=== PATIENT | male | born 2000 | race Caucasian/White ===

== ENCOUNTER 2023-04-08 17:38 | Emergency (ER) | payer MEDICAID ==
[~2023-04-08] VITALS: Ht 170.2 cm; Wt 86.4 kg
[2023-04-08 17:40] VITALS: TEMP 97.9
[2023-04-08] MEDS ORDERED: KETOROLAC TROMETHAMINE 30 MG/ML VIAL IVP ONE (18:15)
[2023-04-08] MEDS ORDERED: ACETAMINOPHEN 500 MG TABLET PO ONE (18:15)
[2023-04-08] MEDS ORDERED: ONDANSETRON HCL 4 MG/2 ML VIAL IVP ONE (18:15)
[2023-04-08] MEDS ORDERED: SODIUM CHLORIDE 0.9% 2,000 ML IV ONE (18:15)
[2023-04-08 18:45] LABS: BASOPHILS % (AUTO) 0.7 % (0.0-2.0); EOSINOPHILS % (AUTO) 0.4 % (1.0-6.0); HEMATOCRIT 44.5 % (41-53); LYMPHOCYTES # (AUTO) 1.4 K/uL (1.0-4.8); LYMPHOCYTES % (AUTO) 12.7 % (22.0-44.0); MEAN CORPUSCULAR HEMOGLOBIN 29.7 pg (26.0-34.0); MEAN CORPUSCULAR HGB CONC 33.8 G/dL (31.0-37.0); MEAN CORPUSCULAR VOLUME 88 fL (80-100); MONOCYTES # (AUTO) 0.8 K/uL (0.1-1.0); MONOCYTES % (AUTO) 7.6 % (2.0-9.0); NEUTROPHILS # (AUTO) 8.5 K/uL (1.8-7.7); NEUTROPHILS % (AUTO) 78.6 % (40.0-70.0); PLATELET COUNT (AUTO) 223 K/uL (150-450); RED BLOOD CELL COUNT(AUTO) 5.06 MIL/uL (4.50-5.90); WHITE BLOOD COUNT (AUTO) 10.9 K/uL (4.5-11.0)
[2023-04-08 19:05] LABS: LACTIC ACID 1.6 mmol/L (0.4-2.0)
[2023-04-08 19:07] LABS: CHLORIDE 100 mmol/L (98-107); SODIUM SERUM 137 mmol/L (136-145)
[2023-04-08 19:11] LABS: ANION GAP 12 mmol/L (8-16); CARBON DIOXIDE 25 mmol/L (22-29)
[2023-04-08 19:12] LABS: GLUCOSE,RANDOM 168 mg/dL (70-110)
[2023-04-08 19:13] LABS: ALANINE AMINOTRANSFERASE 24 U/L (12-78); ALBUMIN 4.5 g/dL (3.4-5.0); ALKALINE PHOSPHATASE 86 U/L (46-116); ASPARTATE AMINOTRANSFERASE 32 U/L (15-37); BILIRUBIN,TOTAL 4.3 mg/dL (0.1-1.0); CALCIUM, TOTAL 9.2 mg/dL (8.8-10.5); CREATININE 1.13 mg/dL (0.60-1.30); GLOMERULAR FILTR. RATE CALC > 60 mL/min (>60); LIPASE 28 U/L (16-77); TOTAL PROTEIN, SERUM 7.8 g/dL (6.4-8.2); UREA NITROGEN, BLOOD 15 mg/dL (7-18)
[2023-04-08 19:24] LABS: ALCOHOL, BLOOD (SERUM) < 3 mg/dL (0-10)
[2023-04-08] MEDS ORDERED: POTASSIUM CHLORIDE 10% 40 MEQ/30 ML LIQUID UDCUP PO ONE (19:30)
[2023-04-08 19:42] VITALS: BP 112/64; PULSE 85; RESP 16
[2023-04-08] MEDS ORDERED: ONDA-104 PO (19:46)
[2023-04-08] MEDS ORDERED: CEPH-558 PO (19:46)
[2023-04-08] MEDS ORDERED: DIPH-654 PO (19:46)
[2023-04-08] MEDS ORDERED: ACET-66 PO (19:46)
== END 2023-04-08 20:18 | disposition home or self-care (01) ==
LOC: EMS 17:41
DX: K52.9 Noninfective gastroenteritis and colitis, unspecified (principal); E87.6 Hypokalemia; Z88.0 Allergy status to penicillin
CPT/HCPCS: 99284; 96374; 96361; 96375; 80053; 83605; 83690; 85025; 36415; G0480; J1885; J2405; J7030; 99285